=== PATIENT | male | born 1995 | race Caucasian/White ===

== ENCOUNTER 2025-01-25 14:47 | Outpatient (CLI) | payer OTHER, SELFPAY ==
--- NOTE | ~2025-01-25 | XR_ITS ---
[id number] Indication: Radiculopathy, cervical region, left side pain x 1 month Comparison: None Findings: The vertebral heights are intact. No fracture or subluxation. The disc heights are intact. Soft tissues unremarkable Impression: No acute abnormality. Reviewed, dictated and finalized at location P. Impression: No acute abnormality.
== END 2025-01-25 14:48 | disposition home or self-care (01) ==
LOC: GOSHIMG 14:48
PROVIDERS: PCP Nurse Practitioner; Visit Provider Nurse Practitioner
DX: M54.12 Radiculopathy, cervical region (principal)
CPT/HCPCS: 72040